=== PATIENT | female | born 1985 | race Caucasian/White ===

== ENCOUNTER 2016-03-08 13:48 | Emergency (ER) | payer MEDICAID ==
[~2016-03-08] VITALS: Ht 157.5 cm; Wt 54.4 kg
[~2016-03-08 13:48] MED LIST: BIRTH CONTROL PILL PO; HYDR-3583 PO; HYDR1TAB PO; HYOS0.1216 PO; MAGN296S50 PO; PRM25T PO; SULF1TAB35 PO; TRAM-42 PO; TRM50T PO
--- OUTSIDE RECORDS SUMMARY | 2016-03-08 13:55 | XMS REPORT | Continuity of Care Document ---
Author Author [facility] Organization [facility] Address Unknown Phone Unavailable Care Team Providers Care Direct Support Specialist Name Role Phone NO, LOCAL PHYSICIAN PCP Unavailable Insurance Providers Payer Name Policy Number Subscriber Name Relationship Medicaid [place] [id number] DamonClara S 16 Self / Same As Patient Advance Directives Directive Response Recorded Date/Time Advance Directives No 12/16/15 6:15pm Health Care Power of Therapist Asst No 12/16/15 6:15pm Organ Donor No 12/16/15 6:15pm Chief Complaint and Reason for Visit Chief Complaint General Problems/Pain Reason for Visit Arthralgia Problems Active Problems Medical Problem Onset Date Status Arthralgia Unknown Acute Constipation Unknown Acute Urinary tract infection Unknown Acute Medications Current Home Medications Medication Dose Units Route Directions Days/Qty Instructions Start Date Sulfamethoxazole/Trimethoprim 1 Each 1 Each Oral Twice A Day 10 Magnesium Citrate 296 Ml 296 Ml Oral Once 1 12/16/15 Tramadol Hcl 50 Mg 50 Mg Oral Every 6 Hours as needed for Pain 10 10/10 Past Home Medications Medication Directions Ordered Status [ Control Pill] , Oral Daily 05/25/10 Discontinued Acetaminophen/Hydrocodone Bitart 1 Tab Tab, 1 - 2 Ea Oral Q 4 - 6 Hr Prn 11/02 Discontinued Hyoscyamine Sulfate 0.125 Mg Tab, 1 Each Oral Q4hr Prn 06/13/11 Discontinued Promethazine Hcl 25 Mg Tablet, 1 Tab Oral Every 6 Hours 06/13/11 Discontinued Social History Social History Problem Response Recorded Date/Time Alcohol Use Occasionally Uses 08/17/2012 1:33am Recreational Drug Use No 08/17/2012 1:33am Recent Foreign Travel No 02/02/2016 6:44pm Recent Infectious Disease Exposure No 02/02/2016 6:44pm Sexually Transmitted Disease No 02/02/2016 6:47pm Recent Hopitalizations Y SURGERIES/CHILDBIRTH 02/02/2016 6:47pm Sexually Transmitted Disease No 02/02/2016 6:47pm Hx Sexually Transmitted Disorders No 07/10/2010 9:08am Hospital Discharge Instructions No hospital discharge instructions. Plan of Care Discharge Date 02/02/16 7:20pm Disposition 01 HOME, SELF-CARE Condition at Discharge Stable Instructions/Education Provided NO INSTRUCTIONS GIVEN Prescriptions See Medication Section Referrals NO,LOCAL PHYSICIAN - Primary Care Physician Additional Instructions/Education 1. Medication as directed 2. Follow-up with your doctor as soon as possible All discharge instructions reviewed with patient and/or family. Voiced understanding. Functional Status No functional status results. Allergies, Adverse Reactions, Alerts Allergen Type Severity Reaction Status Last Updated Penicillins ([id number]) Allergy Intermediate RASH Active 07/10/10 iodine ([id number]) Allergy Active 05/25/10 adhesive tape Allergy Active 05/25/10 Immunizations No immunization records. Vital Signs Acute Vital Signs Vital Response Date/Time Temperature (Fahrenheit) 98 degrees F (97.6 - 99.5) 02/02/2016 6:44pm Temperature (Calculated Celsius) 36.6696 degrees C (36.4 - 37.5) 02/02/2016 6 :44pm Temperature Source Tympanic 02/02/2016 6:44pm Pulse Rate (adult) 80 bpm (60 - 90) 02/02/2016 6:44pm Respiratory Rate 18 bpm (12 - 24) 02/02/2016 6:44pm O2 Sat by Pulse Oximetry 98 % (88 - 100) 02/02/2016 6:44pm Blood Pressure 129/89 mm Hg 02/02/2016 6:44pm Blood Pressure Mean 102 mm Hg 02/02/2016 6:44pm Pain Numeric Pain Scale 9 02/02/2016 7:04pm Height (Feet) 5 feet 02/02/2016 6:44pm Height (Inches) 3 inches 02/02/2016 6:44pm Height (Calculated Centimeters) 160.247860 cm 02/02/2016 6:44pm Weight (Pounds) 135 pounds 02/02/2016 6:44pm Weight (Calculated Kilograms) 61.834520 kilograms 02/02/2016 6:44pm Capillary Refill Capillary Refill Less Than 3 Seconds 02/02/2016 6:44pm Height 5 ft 3 in Weight 135 lb Body Mass Index 23.9 kg/m^2 Results No known relevant diagnostic tests, laboratory data and/or discharge summary. Procedures No known history of procedures. Encounters Encounter Location Arrival/Admit Date Discharge/Depart Date Attending Provider Departed Emergency Room [facility] 02/02/16 6:38pm 02/01 7:20pm JESSE PATEL APRN Recent Diagnosis
[2016-03-08] MEDS ORDERED: TRAM-42 PO (13:58)
[2016-03-08] MEDS ORDERED: METH4TAB PO (13:58)
--- NOTE | 2016-03-08 13:59 | ED General ---
General Stated Complaint: HIP PAIN, R HIP WORSE Source of Information: Patient Exam Limitations: No Limitations History of Present Illness Time Seen by Provider: 13:56 Initial Comments To ER with pain in all of her joints, worse in the right hip. She has a history of rheumatoid arthritis formerly followed by a physician in [facility] where she is originally from. In January she was here for the same presentation as she had just moved to [place]. She missed her follow-up appointment with her primary care in [place] and called to reschedule her appointment but they dropped her as a patient she states. Today, she is out of all of her pain medication. She denies fevers chills or injury. Pain is characteristic of her rheumatoid arthritis Timing/Duration: 1-2 Days Severity: Moderate Allergies and Home Medications Allergies Coded Allergies: Penicillins (Verified Allergy, Intermediate, RASH, 07/10/10) adhesive tape (Unverified Allergy, Unknown, 02/03/16) iodine (Unverified Allergy, Unknown, 02/03/16) Home Medications Magnesium Citrate 296 Ml Solution #1 296 ML PO ONCE Prescribed by: JESSE PATEL on 12/16/151910 Sulfamethoxazole/Trimethoprim 1 Each Tablet #10 1 EACH PO BID Prescribed by: JESSE PATEL on 12/16/151910 Tramadol HCl 50 Mg Tablet #10 50 MG PO Q6H PRN PRN PAIN Prescribed by: JESSE PATEL on 02/02/161851 Constitutional: see HPI EENTM: see HPI Respiratory: no symptoms reported Cardiovascular: no symptoms reported Genitourinary: no symptoms reported Musculoskeletal: see HPI joint pain Skin: no symptoms reported Psychiatric/Neurological: No Symptoms Reported Hematologic/Lymphatic: No Symptoms Reported Immunological/Allergic: no symptoms reported Past Piafanb-Wmjffg-Kbjcdi Hx Patient Social History Recent Hopitalizations: Yes (SURGERIES/CHILDBIRTH) Surgeries HX Surgeries: Yes (MARY FUNDOPLICATION) Surgeries: Appendectomy, Section, Hysterectomy Respiratory Hx Respiratory Disorders: No Cardiovascular Hx Cardiac Disorders: No Neurological Hx Neurological Disorders: Yes Reproductive System Hx Reproductive Disorders: No Sexually Transmitted Disease: No Genitourinary Hx Genitourinary Disorders: No Gastrointestinal Hx Gastrointestinal Disorders: Yes Gastrointestinal Disorders: Gastroesophageal Reflux Musculoskeletal Hx Musculoskeletal Disorders: No Endocrine Hx Endocrine Disorders: No HEENT HX ENT Disorders: No Cancer Hx Cancer: No Psychosocial Hx Psychiatric Problems: No Blood Transfusions Hx Blood Disorders: No Adverse Reaction to a Blood Tr: No Family Medical History Significant Family History: No Pertinent Family Hx Physical Exam Vital Signs Capillary Refill : General Appearance: No Apparent Distress WD/WN Eyes: Bilateral Eye EOMI, Bilateral Eye Normal Inspection, Bilateral Eye PERRL HEENT: PERRL/EOMI TMs Normal Neck: Full Range of Motion Normal Inspection Respiratory: No Accessory Muscle Use No Respiratory Distress Extremity: Normal Capillary Refill Normal Inspection Neurologic/Psychiatric: Alert Oriented x3 No Motor/Sensory Deficits Skin: Normal Color Departure Impression Impression: Primary Impression: Arthralgia Disposition: HOME, SELF-CARE Condition: Stable Departure-Patient Inst. Decision time for Depature: 13:57 Referrals: [facility] (PCP/Family) Primary Care Physician Patient Instructions: CHRONIC PAIN Add. Discharge Instructions: 1. Medication as directed 2. Follow-up with her regular physician Scripts Methylprednisolone (Medrol)4 Mg Tab.ds.pk4 Mg PO UD #1 PKG Prov:JESSE PATEL BOARD CERTIFIED FAMILY PHYSICIAN 03/08/16 Tramadol HCl (Ultram)50 Mg [id number] Mg PO Q6H PRN PAIN #10 TAB Do not fill unless Medrol Dosepak is also filled Prov:JESSE PATEL BOARD CERTIFIED FAMILY PHYSICIAN 03/08/16 JESSE PATEL BOARD CERTIFIED FAMILY PHYSICIAN Mar 08, 2016 13:59
[2016-03-08 14:05] VITALS: BP 120/90
== END 2016-03-08 14:02 | disposition home or self-care (01) ==
LOC: EDUNIT# 13:48 → ER 13:52
DX: M06.9 Rheumatoid arthritis, unspecified (principal)
CPT/HCPCS: 99283

== ENCOUNTER 2016-05-02 13:31 | Day surgery (SDC) | payer MEDICAID ==
[~2016-05-02] VITALS: Ht 157.5 cm; Wt 54.4 kg
[~2016-05-02 13:31] MED LIST changes: +METH4TAB PO
--- OUTSIDE RECORDS SUMMARY | 2016-05-02 13:34 | XMS REPORT | Continuity of Care Document ---
Author Author [facility] Organization [facility] Address Unknown Phone Unavailable Care Team Providers Care Cyber Transport Systems Specialist Name Role Phone NO, LOCAL PHYSICIAN PCP Unavailable Insurance Providers Payer Name Policy Number Subscriber Name Relationship Medicaid [place] [id number] DamonClara S 16 Self / Same As Patient Advance Directives Directive Response Recorded Date/Time Advance Directives No 12/16/15 6:15pm Health Care Power of Dam Tender Assistant No 12/16/15 6:15pm Organ Donor No 12/16/15 [...] Type Severity Reaction Status Last Updated Penicillins ([id number]) Allergy Intermediate RASH Active 07/10/10 iodine ([id number]) Allergy Active 05/25/10 adhesive tape Allergy Active [...] 3 inches 02/02/2016 6:44pm Height (Calculated Centimeters) 160.759329 cm 02/02/2016 6:44pm Weight (Pounds) 135 pounds 02/02/2016 6:44pm Weight (Calculated Kilograms) 61.644637 kilograms 02/02/2016 6:44pm Capillary Refill Capillary Refill Less Than 3 Seconds 02/02/2016 6:44pm Height 5 ft 3 in Weight 135 lb Body Mass Index 23.9 kg/m^2 Results No known relevant diagnostic tests, laboratory data and/or discharge summary. Procedures No known history of procedures. Encounters Encounter Location Arrival/Admit Date Discharge/Depart Date Attending Provider Departed Emergency Room [facility] 02/02/16 6:38pm 02/01 7:20pm JESSE PATEL APRN Recent Diagnosis
--- OUTSIDE RECORDS SUMMARY | 2016-05-02 13:35 | XMS REPORT | Continuity of Care Document ---
Author Author [facility] Organization [facility] Address Unknown Phone Unavailable Care Team Providers Care Slab Miller Operator Name Role Phone NO, LOCAL PHYSICIAN PCP Unavailable Insurance Providers Payer Name Policy Number Subscriber Name Relationship Medicaid [place] [id number] DamonClara S 16 Self / Same As Patient Advance Directives Directive Response Recorded Date/Time Advance Directives No 12/16/15 6:15pm Health Care Power of It Investment/Portfolio Manager No 12/16/15 6:15pm Organ Donor No 12/16/15 [...] Type Severity Reaction Status Last Updated Penicillins ([id number]) Allergy Intermediate RASH Active 07/10/10 iodine ([id number]) Allergy Active 05/25/10 adhesive tape Allergy Active [...] 3 inches 02/02/2016 6:44pm Height (Calculated Centimeters) 160.010744 cm 02/02/2016 6:44pm Weight (Pounds) 135 pounds 02/02/2016 6:44pm Weight (Calculated Kilograms) 61.480669 kilograms 02/02/2016 6:44pm Capillary Refill Capillary Refill Less Than 3 Seconds 02/02/2016 6:44pm Height 5 ft 3 in Weight 135 lb Body Mass Index 23.9 kg/m^2 Results No known relevant diagnostic tests, laboratory data and/or discharge summary. Procedures No known history of procedures. Encounters Encounter Location Arrival/Admit Date Discharge/Depart Date Attending Provider Departed Emergency Room [facility] 02/02/16 6:38pm 02/01 7:20pm JESSE PATEL APRN Recent Diagnosis
[2016-05-02 13:40] VITALS: BP 108/72
[2016-05-02] MEDS ORDERED: NS IV 1000 ML 1,000 ML IV PRN (14:00)
[2016-05-02] MEDS ORDERED: NS IV 500 ML 500 ML ONE ×2 (14:00→14:04)
[2016-05-02] MEDS ORDERED: FLUMAZENIL (ROMAZICON) 0.1 MG/ML 5 ML VIAL INJ PRN (14:00)
[2016-05-02] MEDS ORDERED: HURRICAINE EXT TUBE (BENZOCAINE) XX PRN (14:00)
[2016-05-02] MEDS ORDERED: GLUCAGON EMERGENCY 1 MG/KIT IM ONE (14:00)
[2016-05-02] MEDS ORDERED: NALOXONE 0.4 MG/ML 1 ML (NARCAN) VIAL IVP PRN (14:00)
[2016-05-02] MEDS ORDERED: LIDOCAINE JELLY 2% (XYLOCAINE) 5 ML TUBE MM PRN (14:00)
[2016-05-02] MEDS ORDERED: GABA-488 PO (14:27)
[2016-05-02] MEDS ORDERED: TOPI50TA37 PO (14:30)
[2016-05-02] MEDS ORDERED: TRAZ100T92 PO (14:30)
[2016-05-02] MEDS ORDERED: NORG1TAB14 PO (14:30)
[2016-05-02] MEDS ORDERED: ESOM20CA PO (14:30)
[2016-05-02] MEDS ORDERED: BUSP5POW MC (14:30)
[2016-05-02] MEDS ORDERED: SERT50TA2 PO (14:30)
--- NOTE | 2016-05-02 14:35 | Conscious Sedation/ASA ---
Conscious Sedation Pre-Proced Time Reviewed: 14:30 ASA Class: 2 Airway Mallampati Classification: (bridgeport appropriate class) I. II. III, IV Lungs Heart ASA score ASA 1: a normal healthy patient ASA 2: a patient with a mild systemic disease (mid diabetes, controlled hypertension, obesity ASA 3: a patient with a severe systemic disease that limits activity (angina , COPD, prior Myocardial infarction) ASA 4: a patient with an incapacitating disease that is a constant threat to life (CHF, renal failure) ASA 5: a moribund patient not expected to survive 24 hrs. (ruptured aneurysm) ASA 6: a declared brain patient whose organs are being harvested. For emergent operations, add the letter E after the classification Grade 2 Sedation Plan: Analgesia, Amnesia, Plan communicated to team members, Discussed options with patient/fam, Discussed risks with patient/fam Note The patient is an appropriate candidate to undergo the planned procedure, sedation, and anesthesia. The patient immediately re-assessed prior to indication. VICTORINA MILLER MD May 02, 2016 2:35 pm
--- NOTE | 2016-05-02 14:36 | Progress Note-Pre Operative ---
Pre-Operative Progress Note H&P Reviewed The H&P was reviewed, patient examined and no changes noted. Date H&P Reviewed: May 02, 2016 Time H&P Reviewed: 14:30 Pre-Operative Diagnosis: dysphagia, esophageal FB VICOTRINA MILLER MD May 02, 2016 2:36 pm
[2016-05-02] MEDS ORDERED: ACETAMINOPHEN 325 MG TABLET/CAPLET (TYLENOL) PO PRN (14:45)
[2016-05-02] MEDS ORDERED: HYDROcodone/APAP 5 MG/325 MG (LORTAB) TAB PO PRN (14:45)
[2016-05-02] MEDS ORDERED: morphine INJ 10 MG/ML 1ML (SYR OR VIAL) IV PRN (14:45)
[2016-05-02] MEDS ORDERED: ONDANSETRON 4 MG/2 ML (SDV) Z0FRAN IV PRN (14:45)
[2016-05-02] MEDS: fentaNYL INJECTION 100 MCG/2 ML AMP IVP PRN ×2 (15:00→15:11)
[2016-05-02] MEDS ORDERED: fentaNYL INJECTION 100 MCG/2 ML AMP ONE (15:00)
[2016-05-02] MEDS ORDERED: LIDOCAINE JELLY 2% (XYLOCAINE) 5 ML TUBE ONE (15:00)
[2016-05-02] MEDS ORDERED: MIDAZOLAM 2 MG/2 ML (VERSED) VIAL ONE ×5 (15:00→15:01)
[2016-05-02] MEDS ORDERED: HURRICAINE EXT TUBE (BENZOCAINE) ONE (15:01)
[2016-05-02] MEDS: MIDAZOLAM 2 MG/2 ML (VERSED) VIAL IVP PRN ×5 (15:10→15:25)
--- NOTE | 2016-05-02 15:45 | Progress Note-Post Operative ---
Post-Operative Progess Note Pre-Operative Diagnosis dysphagia, esophageal FB Post-Operative Diagnosis distal esophageal stricture, reflux esophagitis(class B), mild gastritis. Post-Op Procedure Note Date of Procedure: May 02, 2016 Name of Procedure: EGD with bx and dilatation. Anesthesia Type CS Estimated blood loss (mL): minimal Specimen(s) collected GE jxn, antrum VICTORINA MILLER MD May 02, 2016 3:45 pm
[2016-05-02] MEDS ORDERED: HYOS0.1216 PO (15:47)
--- NOTE | 2016-05-02 15:48 | Discharge Inst-Surgical ---
D/C Lap Instructions-KIDO New, Converted, or Re-Newed RX: RX on Chart Follow Up PRN Activity as tolerated High Fiber Diet 25g or more per day Avoid Alcohol, Caffeine, Spicy Buckner and Acid foods. Drink 64 fluid oz or more of fluids per day. Symptoms to Report: Fever over 101 degree F, Nausea/Vomiting If any problems/questions: Contact your physician or go to Emergency Room VICTORINA MILLER MD May 02, 2016 3:48 pm
[2016-05-02 16:00] VITALS: BP 100/65
[2016-05-02 16:45] VITALS: BP 110/70
[2016-05-02 16:55] VITALS: BP 110/70
--- NOTE | 2016-05-03 08:21 | HISTORY AND PHYSICAL ---
DATE OF ADMISSION: 05/02/2016 Ms. Clara Jose is a 31-year-old female who presents with dysphagia. She reports that she ate a small piece of pork loin at approximately 9 p.m. last night and has had issues with dysphagia which persisted throughout the night, as well as this morning. Since that time she has been unable to swallow her own saliva. She reports that this has happened before, however, it tends to go away on its own over time. She has a history of gastroesophageal reflux disease, as well as a hiatal hernia and status post a hiatal hernia repair, as well as a Cosmo fundoplication 2010. Since that time she has had issues with dysphagia on an intermittent basis and states that she has had multiple EGDs as well as dilatation procedures, usually once a year. She does not report any hematemesis or coffee-ground emesis. PAST MEDICAL HISTORY: 1. Gastroesophageal reflux disease. 2. Seizure disorder. PAST SURGERIES: 1. Laparoscopic hiatal hernia repair. 2. Cosmo fundoplication 2010. 3. Total hysterectomy. 4. section x2. ALLERGIES: PENICILLIN MEDICATIONS: 1. Gabapentin. 2. Zoloft. 3. Nexium. 4. Sprintec. 5. Topamax, 6. Trazodone. SOCIAL HISTORY: Previous smoke, quit one year ago 12 - pack-years, negative alcohol. FAMILY HISTORY: Noncontributory. VITAL SIGNS: Stable. REVIEW OF SYSTEMS: This is a well-nourished female currently in no acute distress. She is not experiencing any shortness of breath or difficulty breathing. No chest pain, palpitations, diaphoresis. Intermittent episodes of dysphagia with epigastric pressure sensation as well as regurgitation. No hematemesis, no coffee-ground emesis. No red blood per rectum. No dark tarry stools. No fever, chills, no recent inadvertent weight loss. PHYSICAL EXAMINATION: CHEST: Clear. HEART: Regular. EXTREMITIES: No lower extremity edema. Negative Homans sign. HEENT: No scleral icterus. No cervical lymphadenopathy. ABDOMEN: Soft, nondistended. There is mild discomfort in the epigastric region upon deep palpation. No peritoneal signs. ASSESSMENT AND PLAN: 31-year-old female with dysphagia most likely secondary to a distal esophageal stricture status post hiatal hernia repair, as well as Cosmo fundoplication. She has obvious signs of dysphagia and is unable to swallow her own saliva. We will proceed with an EGD, removal of foreign body as well as esophageal dilatation. Job ID: [id number] Dictated Date: 05/02/2016 15:06:33 Press And Blow Machine Tender Date: 05/03/2016 08:14:25/alex
--- NOTE | 2016-05-03 10:22 | OPERATIVE REPORT ---
PROCEDURE PHYSICIAN: VICTORINA MILLER DATE OF PROCEDURE: 05/02/2016 PREOPERATIVE DIAGNOSES: 1. Recurrent dysphagia. 2. Esophageal stricture. POSTOPERATIVE DIAGNOSES: 1. Distal esophageal stricture. There was no foreign body identified. 2. Intact wrap with no recurrent hiatal hernia. 3. Mild to moderate gastritis. 4. No distal obstruction. PROCEDURE: EGD with biopsy and dilatation. SURGEON: Dr. Miller. ANESTHESIA: Conscious sedation. ESTIMATED BLOOD LOSS: Minimal. FINDINGS: 1. There was a distal esophageal stricture with no foreign body. 2. There was a reflux esophagitis, class B. 3. There was no recurrent hiatal hernia with an intact wrap. 4. Mild to moderate gastritis. 5. No ulcers. 6. The pylorus and duodenum appeared normal. DISPOSITION: The patient tolerated procedure well. Ms. Clara Jose is a 31-year-old female with a long-standing history of gastroesophageal reflux disease. She was found to have a significant sized hiatal hernia and underwent a hiatal hernia repair, as well as a Cosmo fundoplication 2010. Since that time she has had some recurrent issues with dysphagia. She reports that this may occur on an intermittent basis with epigastric tightness and pressure sensation, however, usually the food bolus would pass within 10 to 15 minutes. Occasionally this does not reduce on its own. She reports that she has had several EGDs as well as dilatation procedures done in the past as well. She is currently on Nexium. Again, she has dysphagia and states that she did have a pork loin yesterday night and since that time she has had dysphagia and inability to swallow her saliva. PROCEDURE: The patient was brought to the endoscopy suite, laid in the left lateral decubitus position. After adequate IV pain and sedative medications and conscious sedation anesthesia, the mouthpiece was applied. The endoscope was placed in the mouth, visualizing the pharynx and hypopharyngeal region. Vocal cords, epiglottis and vallecula identified and appeared to be normal. The endoscope was then intubated into the esophageal opening and the esophagus insufflated. There was no saliva or liquid identified in the esophagus. The endoscope was then advanced through the first, second, and 3rd portions esophagus at the level of the GE junction, a reflux esophagitis, class B identified. A distal esophageal stricture was also identified. A biopsy was taken with forceps with visualization of good hemostasis. The endoscope was then advanced through the GE junction with mild resistance and endoscope retroflexed. There was no recurrent hiatal hernia, as well as an intact previous wrap. There was a mild to moderate gastritis; however, no ulcers, polyps or any neoplasms identified. A biopsy was taken of the antrum with forceps with visualization of good hemostasis. The endoscope was then advanced through the pylorus and into the first and second portions of duodenum which appeared normal with no distal obstructions. We then proceeded with dilatation of the distal esophageal stricture. A CRE fixed guidewire balloon was placed under direct visualization into the stomach and brought back to the area of the stricture. The balloon was first dilated to 3 atmospheres of pressure or 18 mm with mild resistance. We then proceeded with 4.5 atmospheres of pressure or 19 mm with moderate resistance and she did show discomfort consistent with a successful dilatation. This was left in place for approximately 60 seconds and desufflated and removed. No mucosal tears were identified. The endoscope was then advanced back into stomach and the residual air suctioned out. The patient tolerated procedure well. We will have her continue with medical management with the necessary lifestyle and diet accommodation including smaller, more frequent meals, avoidance of eating at night, as well as head elevation while laying supine. She also needs to avoid caffeinated beverages, spicy, greasy and acidic foods. We will also proceed with a trial hyoscyamine for potential esophageal spasms. Job ID: [id number] Dictated Date: 05/02/2016 15:40:50 Mucker Cofferdam Date: 05/03/2016 10:11:27 / raysa
[2016-05-03] MEDS ORDERED: BUSP5TAB59 PO (13:09)
[2016-05-03] MEDS ORDERED: HYOS0.1216 PO (13:09)
[2016-05-03] MEDS ORDERED: TRAM50TA2 PO (13:13)
== END 2016-05-02 16:59 | disposition home or self-care (01) ==
LOC: ENDO 13:31
PROVIDERS: ATTEND Surgery Pediatric Surgery
DX: K22.2 Esophageal obstruction (principal); K29.70 Gastritis, unspecified, without bleeding; K21.9 Gastro-esophageal reflux disease without esophagitis; G40.909 Epilepsy, unspecified, not intractable, without status epilepticus; Z87.891 Personal history of nicotine dependence; Z79.899 Other long term (current) drug therapy
CPT/HCPCS: 88305

== ENCOUNTER 2016-05-03 11:21 | Observation (INO) | payer MEDICAID ==
[~2016-05-03] VITALS: Ht 157.5 cm; Wt 54.4 kg
[~2016-05-03 11:21] MED LIST changes: +BUSP5POW MC; +ESOM20CA PO; +GABA-488 PO; +NORG1TAB14 PO; +SERT50TA2 PO; +TOPI50TA37 PO; +TRAZ100T92 PO
--- OUTSIDE RECORDS SUMMARY | 2016-05-03 12:03 | XMS REPORT | Continuity of Care Document ---
Author Author [facility] Organization [facility] Address Unknown Phone Unavailable Care Team Providers Care Box Turner Name Role Phone NO, LOCAL PHYSICIAN PCP Unavailable Insurance Providers Payer Name Policy Number Subscriber Name Relationship Medicaid [place] [id number] DamonClara S 18 Self / Same As Patient Advance Directives Directive Response Recorded Date/Time Advance Directives No 12/16/15 6:15pm Health Care Power of Toolroom Attendant No 12/16/15 6:15pm Organ Donor No 12/16/15 [...] Type Severity Reaction Status Last Updated Penicillins ([id number]) Allergy Intermediate RASH Active 07/10/10 iodine ([id number]) Allergy Active 05/25/10 adhesive tape Allergy Active [...] 3 inches 02/02/2016 6:44pm Height (Calculated Centimeters) 160.856077 cm 02/02/2016 6:44pm Weight (Pounds) 135 pounds 02/02/2016 6:44pm Weight (Calculated Kilograms) 61.137142 kilograms 02/02/2016 6:44pm Capillary Refill Capillary Refill Less Than 3 Seconds 02/02/2016 6:44pm Height 5 ft 3 in Weight 135 lb Body Mass Index 23.9 kg/m^2 Results No known relevant diagnostic tests, laboratory data and/or discharge summary. Procedures No known history of procedures. Encounters Encounter Location Arrival/Admit Date Discharge/Depart Date Attending Provider Departed Emergency Room [facility] 02/02/16 6:38pm 02/01 7:20pm JESSE PATEL APRN Recent Diagnosis
[2016-05-03 12:35] LABS: BASOPHILS % (AUTO) 1 % (0-10); EOSINOPHILS # (AUTO) 0.1 10^3/uL (0.0-0.3); EOSINOPHILS % (AUTO) 4 % (0-10); LYMPHOCYTES # (AUTO) 1.7 X 10^3 (1.0-4.0); LYMPHOCYTES % (AUTO) 47 % (12-44); MEAN CORPUSCULAR HEMOGLOBIN 32 PG (25-34); MEAN CORPUSCULAR HGB CONC 34 G/DL (32-36); MEAN CORPUSCULAR VOLUME 94 FL (80-99); MEAN PLATELET VOLUME 10.1 FL (7.4-10.4); MONOCYTES # (AUTO) 0.3 X 10^3 (0.0-1.0); MONOCYTES % (AUTO) 7 % (0-12); NEUTROPHILS # (AUTO) 1.5 X 10^3 (1.8-7.8); NEUTROPHILS % (AUTO) 42 % (42-75); PLATELET COUNT 210 10^3/uL (130-400); RED BLOOD COUNT 4.07 10^6/uL (4.35-5.85); RED CELL DISTRIBUTION WIDTH 13.1 % (10.0-14.5); WHITE BLOOD COUNT 3.6 10^3/uL (4.3-11.0)
[2016-05-03 12:54] LABS: ANION GAP 8 MMOL/L (5-14); BLOOD UREA NITROGEN 15 MG/DL (7-18); BUN/CREATININE RATIO 19; CALCIUM 9.1 MG/DL (8.5-10.1); CARBON DIOXIDE 23 MMOL/L (21-32); CHLORIDE 110 MMOL/L (98-107); CREATININE SERUM 0.78 MG/DL (0.60-1.30); GFR ESTIMATED > 60; GLUCOSE 85 MG/DL (70-105); SODIUM 141 MMOL/L (135-145)
[2016-05-03] MEDS ORDERED: NS IV 1000 ML 1,000 ML IV SCH (13:00)
[2016-05-03] MEDS ORDERED: LORazepam INJ 2 MG/ML (ATIVAN) VIAL IV PRN (13:00)
[2016-05-03] MEDS ORDERED: methylPREDNISolone 125 MG (Solu-MEDROL) VIAL IV NR (13:00)
[2016-05-03] MEDS ORDERED: ONDANSETRON 4 MG/2 ML (SDV) Z0FRAN IV PRN (13:00)
[2016-05-03] MEDS ORDERED: METOCLOPRAMIDE INJ 10 MG/2 ML (REGLAN) IV PRN (13:00)
[2016-05-03] MEDS ORDERED: CATHETER FLUSH 10 ML SYR IV PRN (13:00)
[2016-05-03] MEDS ORDERED: BUSP5TAB59 PO (13:09)
[2016-05-03] MEDS ORDERED: HYOS0.1216 PO (13:09)
[2016-05-03] MEDS ORDERED: TRAM50TA2 PO (13:13)
[2016-05-03] MEDS: PANTOPRAZOLE 40 MG/10 ML (PROTONIX) VIAL IV SCH ×2 (13:24→21:11)
[2016-05-03 14:53] VITALS: BP 106/70
[2016-05-03] MEDS: NS IV 1000 ML 1,000 ML IV SCH ×3 (14:57→23:13)
[2016-05-03 15:30] VITALS: BP 91/53
[2016-05-03] MEDS ORDERED: DIATRIZOATE MEGLUM/SODIUM 37% 120 ML (GASTROGRAFIN) PO ONE (15:30)
--- NOTE | 2016-05-03 15:45 | Diagnostic Imaging Report ---
EXAMINATION: Barium Swallow - esophagram. INDICATION: Difficulty swallowing. FINDINGS: Reportedly, the patient had an endoscopic procedure performed yesterday. The preliminary film reveals that the heart size is within normal limits. The lungs are clear. There is no evidence for pneumonia or for a pleural effusion. There is no sign of pneumothorax or pneumomediastinum either. The osseous structures are intact. The patient was given a small amount of Gastrografin to swallow. However, despite encouragement, she was unable to initiate the swallowing mechanism. She subsequently expelled the Gastrografin. She was then asked to swallow again. Again she tried to swallow but could not. The exam was then terminated. IMPRESSION: 1. The patient was unable to initiate the swallowing mechanism. Consequently, the esophagus could not be visualized. An ENT consult should be considered. 2. These results were discussed with Dr. Kitchen. Dictated by: Dictated on workstation # [id number]
--- NOTE | 2016-05-03 16:12 | Speech Therapy Progress Note ---
Therapy Progress Note Speech pathology received consultation for "Modified Barium Swallow Evaluation. " Upon review of the patient's chart and medical history, it appears a "Barium Swallow Evaluation" is more appropriate and was completed at 12:10 on 05/03/2016 in [place] of the modified barium swallow evaluation by speech pathology. The speech pathologist contacted the patient's RN following floor transfer and we re -directed to the RN who was previously caring for the patient in ICU. The speech pathologist made two attempts to contact the RN in ICU and left a message for a returned call. If a modified barium swallow remains appropriate, the evaluation will need to be scheduled with speech pathology with the earliest available appointment on 05/07/16. Speech pathology will attempt to continue follow up regarding the necessary assessments needed/ ordered. KALIN VALE May 03, 2016 16:12
[2016-05-03] MEDS: METOCLOPRAMIDE INJ 10 MG/2 ML (REGLAN) IV SCH ×2 (17:02→23:53)
--- NOTE | 2016-05-03 19:02 | Progress Note-Standard ---
Standard Progress Note Progress Notes/Assess & Plan Progress/Assessment & Plan ENT-Keenan PAtient seen and evaluated Fiberoptic laryngosocpy-showed no abnormality of larynx or supraglottic strucures-good airway-pyriform sinuses open well-no pooling os secretions by history she suffers from esophageal spasms with distant history of h/h surgery EGD -today-showed no esophageal obstruction would rec-modified swallow in am Discusssed her sign choking episode and sometimes it takes some time to be able to swallow again even without an obstruction present HOpefully after modified swallow in am she will begin to swallow her slaivan and then progrss to a diet as she is hungry full note dictated. PIERRE CRAFT MD May 03, 2016 7:02 pm
[2016-05-03 20:00] VITALS: BP 97/49
[2016-05-03] MEDS: fentaNYL INJECTION 100 MCG/2 ML AMP IV PRN (23:13)
[2016-05-04] VITALS: BP 78/43
[2016-05-04 01:00] VITALS: BP 94/52
[2016-05-04 04:00] VITALS: BP 82/57
[2016-05-04] MEDS: METOCLOPRAMIDE INJ 10 MG/2 ML (REGLAN) IV SCH ×2 (05:14→11:53)
--- NOTE | 2016-05-04 06:42 | Progress Note-Standard ---
Standard Progress Note Progress Notes/Assess & Plan Progress/Assessment & Plan ENT-Kristin PAtient seen and evaluated Fiberoptic laryngosocpy-showed no abnormality of larynx or supraglottic strucures-good airway-pyriform sinuses open well-no pooling os secretions by history she suffers from esophageal spasms with distant history of h/h surgery EGD -today-showed no esophageal obstruction would rec-modified swallow in am Discusssed her sign choking episode and sometimes it takes some time to be able to swallow again even without an obstruction present HOpefully after modified swallow in am she will begin to swallow her slaivan and then progrss to a diet as she is hungry full note dictated. ENT-Kristin patient able to sleep overnight and handle her saliva while asleep still no oral intake otherwise hopefully will begin to swallow today Attempt giorgio modified swallow today as well PIERRE CRAFT MD May 04, 2016 6:42 am
[2016-05-04] MEDS: NS IV 1000 ML 1,000 ML IV SCH (06:52)
--- NOTE | 2016-05-04 07:59 | Speech Therapy Progress Note ---
Therapy Progress Note Speech pathology received confirmation for scheduling of modified barium swallow. Via [facility] Scheduling was contacted, however, not reached. A message was left requesting a return phone call, as well as, the first available appointment for a modified barium swallow. Thank you. KALIN VALE May 04, 2016 07:59
[2016-05-04 08:00] VITALS: BP 101/58
--- NOTE | 2016-05-04 08:28 | CONSULTATION REPORT ---
DATE OF CONSULTATION: ENT CONSULTATION: REFERRING PHYSICIAN: Dr. Kitchen REASON FOR CONSULTATION: Dysphagia. HISTORY OF PRESENT ILLNESS: The patient is 31-year-old female had a choking episode at home about 24 hours ago. She choked on a piece boneless pork loin. She had a significant choking event and describes significant problems with her breathing as well as retching. Her history is significant for a hiatal hernia repair back in 2010. She reports she has had some difficulty swallowing since that time. Dr. Kitchen did an upper endoscopy today and dilated the esophagus. No foreign body was found and really no significant stricture was present. She still has significant difficulty swallowing and is sitting in the spitting her saliva and cup. She complains of pain in the upper esophageal or neck region. Her voice is normal. She is breathing without difficulties. ALLERGIES: PENICILLIN PHYSICAL EXAMINATION: NOSE: Normal nasal mucosa. No mass or lesions seen. She has a nose ring in on the left. The right side of the nose was anesthetized with topical 4% Xylocaine. Nasopharynx was examined. No mass or lesions seen in the nasopharynx. MOUTH: The soft palate closes the nasopharynx well upon swallowing. Oral cavity showed the tongue with normal mobility with a strong gag reflex. No tongue fasciculations. The hypopharynx and larynx were examined with flexible scope. On evaluation there was no foreign body or abnormal mass seen in the base of the tongue. Supraglottic structures were normal. Vocal cords move well and met in the midline. She had no pooling of secretions in the piriform sinuses. The piriform sinuses opened well. The immediate subglottic region was clear. NECK: No mass or adenopathy palpable within the neck. IMPRESSION: 1. Dysphagia. 2. Severe choking event. RECOMMENDATIONS: Findings were discussed with the patient. There are no significant abnormalities seen above the level of cord. They attempted to do a barium swallow today but had to abort it as she did not swallow. We will attempt to do a modified swallow tomorrow. Anatomically there was nothing above the cords, which should inhibit her swallowing. We will see how she does on the modified swallow on Saturday. Hopefully with time the swelling will (s/l return) if she gets more comfortable. Job ID: [id number] Dictated Date: 05/04/2016 06:49:37 Cloth Layer Date: 05/04/2016 08:13:34/alex
[2016-05-04] MEDS: PANTOPRAZOLE 40 MG/10 ML (PROTONIX) VIAL IV SCH (08:30)
[2016-05-04] MEDS: fentaNYL INJECTION 100 MCG/2 ML AMP IV PRN (08:37)
[2016-05-04 11:09] LABS: BILIRUBIN,URINE NEGATIVE (NEGATIVE); KETONES,URINE NEGATIVE (NEGATIVE); LEUKOCYTE ESTERASE ,URINE NEGATIVE (NEGATIVE); NITRITE,URINE NEGATIVE (NEGATIVE); PH,URINE 6 (5-9); PROTEIN,URINE NEGATIVE (NEGATIVE); UROBILINOGEN,URINE NORMAL (NORMAL)
[2016-05-04] MEDS ORDERED: SUCR1ORA5 PO (11:34)
--- NOTE | 2016-05-04 11:35 | Discharge Instructions ---
Discharge Instructions Discharge Medications New, Converted or Re-Newed RX: Transmitted to Pharmacy New Medications: Sucralfate (Carafate) 1 Gm/10 Ml Oral.susp 1 GM PO ACHS #8 OZ Continued Medications: Buspirone HCl (Buspirone HCl) 5 Mg Tablet 5 MG PO TID TAB Esomeprazole Magnesium (Nexium) 20 Mg Capsule.dr 20 MG PO DAILY CAP Gabapentin (Gabapentin) 300 Mg Capsule 300 MG PO TID CAP Hyoscyamine Sulfate (Hyoscyamine Sulfate) 0.125 Mg Tablet 0.125 MG PO TID PRN SPASMS TAB Sertraline HCl (Zoloft) 50 Mg Tablet 50 MG PO DAILY TAB Topiramate (Topamax) 50 Mg Tablet 50 MG PO BID TAB Tramadol HCl (Tramadol HCl) 50 Mg Tablet 50 MG PO Q6H PRN PAIN TAB Trazodone HCl (Trazodone HCl) 100 Mg Tablet 100 MG PO HS PRN INSOMNIA TAB Patient Instructions Goal/Follow Up Appt: [facility] is scheduled Activity & Diet Discharge Diet: Liquid Diet, Soft Diet Activity as Tolerated: Yes DERIK SLAUGHTER DO May 04, 2016 11:35
--- NOTE | 2016-05-04 11:38 | Consultation-Hospitalist ---
HPI History of Present Illness: HPI/Chief Complaint CC: Dysphagia HPI: This is a 31yoWF pt of [facility] that presented with dysphagia after eating piece of pork but EGD revealed no food remnants and pt was admitted due to inability to swallow. Dr. Foster saw pt and has no answer for source of dysphagia but likely emotional in nature. insights manager: Pt is able to swallow, but may have UTI. Dr. Foster analyzed vocal chords last night and had no complications. Patient Interview: Pt states that her swallowing is improved. Pt just sent urine sample for analysis. Pt sees Dr. Fenton at [facility]. Dr. Slaughter informs pt that as long as she is able to eat and drink she will be able to DC today. Pt uses [facility]. Pt denies smoking. Pt is currently unemployed and searching for a job. Pt states that her throat is still in pain. Scribed by Beto Diamond under the direct supervision of Dr. Slaughter. Source: patient Exam Limitations: no limitations Date Seen 05/04/16 Attending Physician aRheem Kitchen MD PCP [facility] [place] Referring Physician Date of Admission May 03, 2016 at 11:50 Home Medications & Allergies Home Medications Reviewed patient Home Medication Reconciliation Form Allergies Coded Allergies: Penicillins (Verified Allergy, Intermediate, RASH, 07/10/10) adhesive tape (Unverified Allergy, Unknown, 02/03/16) iodine (Unverified Allergy, Unknown, 02/03/16) Past Mwuupzm-Klqjlb-Wabjqt Hx Patient Social History Marrital Status: single Employed/Student: unemployed Alcohol Use: Occasionally Uses Recreational Drug Use: No Smoking Status: Current Everyday Smoker Type Used: Electronic/Vapor Physical Abuse Screen: No Sexual Abuse: No Recent Foreign Travel: No Contact w/other who traveled: No Recent Hopitalizations: No Recent Infectious Disease Expo: No Seasonal Allergies Seasonal Allergies: Yes Surgeries HX Surgeries: Yes (MARY FUNDOPLICATION) Surgeries: Appendectomy, Section, Hysterectomy Respiratory Hx Respiratory Disorders: No Cardiovascular Hx Cardiovascular Disorders: No Neurological Hx Neurological Disorders: Yes Neurological Disorders: Neuropathy Reproductive System Hx Reproductive Disorders: No Sexually Transmitted Disease: No Genitourinary Hx Genitourinary Disorders: No Gastrointestinal Hx Gastrointestinal Disorders: Yes Gastrointestinal Disorders: Gastroesophageal Reflux Musculoskeletal Hx Musculoskeletal Disorders: No Endocrine Hx Endocrine Disorders: No HEENT HX ENT Disorders: No Cancer Hx Cancer: No Psychosocial Hx Psychiatric Problems: Yes Behavioral Health Disorders: Anxiety, Depression Integumentary Skin/Integumentary Disorders: Eczema Blood Transfusions Hx Blood Disorders: No Adverse Reaction to a Blood Tr: No Family Medical History Significant Family History: No Pertinent Family Hx Review of Systems Constitutional: see HPI EENTM: mouth pain throat pain throat swelling Respiratory: no symptoms reported Cardiovascular: no symptoms reported Gastrointestinal: no symptoms reported Genitourinary: frequency Musculoskeletal: no symptoms reported Skin: no symptoms reported Psychiatric/Neurological: No Symptoms Reported All Other Systems Reviewed Negative Unless Noted: Yes Physical Exam Physical Exam Vital Signs Vital Sign - Last 12Hours 05/03/16 14:53 Temp 98.7 Pulse 62 Resp 16 B/P 106/70 Pulse Ox 100 O2 Delivery Room Air Capillary Refill : General Appearance: No Apparent Distress WD/WN Eyes: Bilateral Eye Normal Inspection, Bilateral Eye PERRL HEENT: PERRL/EOMI Normal ENT Inspection Pharynx Normal Neck: Full Range of Motion Normal Inspection Non Tender Supple Carotid Bruit Respiratory: Chest Non Tender Lungs Clear Normal Breath Sounds No Accessory Muscle Use No Respiratory Distress Cardiovascular: Regular Rate, Rhythm No Edema No Gallop No JVD No Murmur Normal Peripheral Pulses Gastrointestinal: Normal Bowel Sounds No Organomegaly No Pulsatile Mass Non Tender Soft Back: Normal Inspection No CVA Tenderness No Vertebral Tenderness Extremity: Normal Capillary Refill Normal Inspection Normal Range of Motion Non Tender No Calf Tenderness No Pedal Edema Neurologic/Psychiatric: Alert Oriented x3 No Motor/Sensory Deficits Normal Mood/Affect Skin: Normal Color Warm/Dry Lymphatic: No Adenopathy Results Results/Procedures Lab Laboratory Tests 05/03/16 12:27 Assessment/Plan Admission Diagnosis Assessment: Acute dysphagia without source now resolving Urinary frequency with normal UA Assessment and Plan Plan: UA Canceled speech eval since pt can swallow now Close follow-up at [facility] Clinical Quality Measures DVT/VTE Risk/Contraindication: Risk Factor Score Per Nursin RFS Level Per Nursing on Admit: 1=Low/No VTE PPX DERIK SLAUGHTER DO May 04, 2016 11:38
--- NOTE | 2016-05-04 12:03 | ST Dysphagia Evaluation ---
Speech Evaluation-General Medical Diagnosis Dysphagia Onset Date: May 03, 2016 Therapy Diagnosis Therapy Diagnosis: Mild Odynophagia Precautions Precautions: Aspiration Precautions/Isolations: Standard Precautions Referral Referring Physician: Dr. Kitchen Reason for Referral: Evaluation/Treatment Bedside Swallowing Evaluation Speech PLF/Current-Dysphagia Prior Level of Function The patient denied signs/symptoms of aspiration with regular consistencies and thin liquids. Subjective The patient was recently admitted to [facility] following an EGD for a questionable esophageal obstruction (no obstruction was found). The patient stated she was "coughing and choking" on all consistencies she was consuming, as well as, reported odynophagia. Per patient, she is able to swallow on this date with increased ease and decreased difficulty. The patient agreed to participate in the dysphagia evaluation on this date. Cognitive Status Patient Orientation: Person, Place, Time, Situation Oral Motor Skills Dentition: Natural Current Food Consistancy: Regular, Thin Liquids Ability to Follow Directions: Excellent Oral Expression Ability: No Impairment Voice Voice Phonatory-Based Quality: Normal Voice Pitch: Normal Voice Loudness: Normal Face Facial Symmetry: Symmetrical Oral-Facial Assessment Oral-Facial Dentition: Normal Labial Seal Description: Normal Smile: Normal Puff Cheeks: Normal Lingual Protrusion: Normal Lingual ROM: Normal Lingual Strength: Normal Pharynx Velopharyngeal Move.: Normal Volitional Dry Swallow: Yes Dysphagia Evaluation Consistencies Presented: Thin Liquid, Mechanical Soft, Pureed - No oral impairments were noted throughout the evaluation. - No pharyngeal impairments were noted throughout the evaluation. - Thin liquids, puree, and mechanical soft solid: No signs/symptoms of aspiration were demonstrated with multiple boluses of any consistency provided. The patient's vocal quality remained clear throughout the assessment, however, the patient continued to report odynophagia upon each swallow. Dietary Recommendations: Mechanical Soft Liquid Recommendations: Thin Swallowing Precautions: Alternate Liquids/Solids, Small Bites and Sips, Sitting 90 Degrees 30 Post Intake - The patient should avoid dry, hard, sharp consistencies pending increased pharyngeal comfort. Dysphagia Evaluation Summary Mild Odynophagia Speech-Plan Treatment Plan Speech Therapy Treatment Plan: Discontinue ST Evaluation, only. Rehab Potential: Good Safety Risks/Education Teaching Recipient: Patient Teaching Methods: Discussion Response to Teaching: Verbalize Understanding Education Topics Provided: Results, Recommendations Time Speech Therapy Time In: 10:40 Speech Therapy Time Out: 10:55 Total Billed Time: 15 Billed Treatment Time 1, DYSEVS Speech GCodes Complexity Level Test(s)/Tool Used to Determine: Level of Assistance Scale Functional Limitation-Current Current: ADONIS Modifier: Functional Limitation-Goal Goal: SWALGOAL Modifier: Functional Limitation-D/C Discharge: [facility] Modifier: KALIN JOSEPH May 04, 2016 12:03
== END 2016-05-04 11:33 | disposition home or self-care (01) ==
LOC: ICU 11:45 → UNDOADMOB 11:50 → ICU 11:50 → 4TH 14:49 → ICU 14:49 → UNDODISOB 05-04 11:55
PROVIDERS: ADMIT Surgery Pediatric Surgery; ATTEND Surgery Pediatric Surgery
DX: R13.10 Dysphagia, unspecified (principal); K21.9 Gastro-esophageal reflux disease without esophagitis; R35.0 Frequency of micturition; F17.210 Nicotine dependence, cigarettes, uncomplicated
CPT/HCPCS: 36415; 74220; 80048; 81000; 85025; 99211; G0378

== ENCOUNTER 2016-06-30 21:33 | Emergency (ER) | payer SELFPAY ==
[~2016-06-30] VITALS: Ht 157.5 cm; Wt 54.4 kg
[~2016-06-30 21:33] MED LIST changes: +BUSP5TAB59 PO; +SUCR1ORA5 PO; +TRAM50TA2 PO
--- NOTE | 2016-07-01 00:06 | ED General ---
General Chief Complaint: General Problems/Pain Stated Complaint: HAS EPILEPSY - HAS BEEN FEELING OFF Nursing Triage Note: Patient c/o "feeling foggy, unable to focus, numb nose and lip". Has a history of "Absent seizures" Has been staring "off into space" Reports that she has been taking her medication as prescribed. Denies missing a dose. Nursing Sepsis Screen: No Definite Risk Source of Information: Patient Exam Limitations: No Limitations History of Present Illness Time Seen by Provider: 23:51 Initial Comments This 31-year-old young woman presents to emergency room with complaint of "I don 't feel right". She complains of numbness of her nose and top lip. She has difficulty concentrating. She had nausea earlier in the day. She has no specific lateralizing focal neurologic complaints. She takes numerous medications that could cause dysphoria or drowsiness including Topamax, gabapentin, Zoloft, Buspar, and trazodone. Allergies and Home Medications Allergies Coded Allergies: Penicillins (Verified Allergy, Intermediate, RASH, 07/10/10) adhesive tape (Unverified Allergy, Unknown, 02/03/16) iodine (Unverified Allergy, Unknown, 02/03/16) Home Medications Buspirone HCl 5 Mg Tablet, 5 MG PO TID, (Reported) Esomeprazole Magnesium 20 Mg Capsule.dr, 20 MG PO DAILY, (Reported) Gabapentin 300 Mg Capsule, 300 MG PO TID, (Reported) Hyoscyamine Sulfate 0.125 Mg Tablet, 0.125 MG PO TID PRN for SPASMS, (Reported) Sertraline HCl 50 Mg Tablet, 50 MG PO DAILY, (Reported) Sucralfate 1 Gm/10 Ml Oral.susp, 1 GM PO ACHS, #8 Prescribed by: DERIK SLAUGHTER on 05/04/16 [id number] Topiramate 50 Mg Tablet, 50 MG PO BID, (Reported) Tramadol HCl 50 Mg Tablet, 50 MG PO Q6H PRN for PAIN, (Reported) Trazodone HCl 100 Mg Tablet, 100 MG PO HS PRN for INSOMNIA, (Reported) Constitutional: see HPI EENTM: see HPI Respiratory: no symptoms reported Cardiovascular: no symptoms reported Gastrointestinal: see HPI Genitourinary: no symptoms reported Musculoskeletal: no symptoms reported Skin: no symptoms reported Psychiatric/Neurological: See HPI Hematologic/Lymphatic: No Symptoms Reported Immunological/Allergic: no symptoms reported Past Gsljnrr-Qtkahi-Ovawxz Hx Patient Social History Alcohol Use: Occasionally Uses Recreational Drug Use: No Type Used: Electronic/Vapor 2nd Hand Smoke Exposure: No Recent Foreign Travel: No Contact w/Someone Who Travel: No Recent Infectious Disease Expo: No Recent Hopitalizations: Yes Immunizations Up To Date Tetanus Booster (TDap): Unknown PED Vaccines UTD: No Seasonal Allergies Seasonal Allergies: Yes Surgeries HX Surgeries: Yes (MARY FUNDOPLICATION) Surgeries: Appendectomy, Section, Hysterectomy Respiratory Hx Respiratory Disorders: No Cardiovascular Hx Cardiac Disorders: No Neurological Hx Neurological Disorders: Yes Neurological Disorders: Headaches /Migraines, Neuropathy, Seizure Disorder Reproductive System : No Hx Reproductive Disorders: No Sexually Transmitted Disease: No HIV/AIDS: No 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 Genitourinary Hx Genitourinary Disorders: No Gastrointestinal Hx Gastrointestinal Disorders: Yes Gastrointestinal Disorders: Gastroesophageal Reflux, Hiatal Hernia Musculoskeletal Hx Musculoskeletal Disorders: No Endocrine Hx Endocrine Disorders: No HEENT HX ENT Disorders: No Cancer Hx Cancer: No Psychosocial Hx Psychiatric Problems: Yes Behavioral Health Disorders: Anxiety, Depression Integumentary HX Skin/Integumentary Disorder: Yes Skin/Integumentary Disorders: Eczema Blood Transfusions Hx Blood Disorders: No Adverse Reaction to a Blood Tr: No Family Medical History Significant Family History: No Pertinent Family Hx Physical Exam Vital Signs Vital Sign - Last 12Hours 06/30/16 22:18 Temp 98.6 Pulse 52 Resp 18 B/P (MAP) 97/63 Pulse Ox 98 O2 Delivery Room Air Capillary Refill : Less Than 3 Seconds General Appearance: No Apparent Distress, WD/WN HEENT: PERRL/EOMI, Normal ENT Inspection, Pharynx Normal Neck: Normal Inspection Respiratory: Lungs Clear, Normal Breath Sounds, No Accessory Muscle Use, No Respiratory Distress Cardiovascular: Regular Rate, Rhythm, No Edema, No Murmur Gastrointestinal: Normal Bowel Sounds, Non Tender, Soft Extremity: Normal Inspection, No Pedal Edema Neurologic/Psychiatric: Alert, Oriented x3, No Motor/Sensory Deficits, Normal Mood/Affect, change control coordinator II-XII Norm as Tested Skin: Normal Color, Warm/Dry Progress/Results/Core Measures Results/Orders Vital Signs/I&O Blood Pressure Mean: 74 Progress Note : Progress Note Options discussed with patient. She has appointment coming up with her primary care provider. I offered to perform screening lab work. Patient declines as vital signs are stable and exam is unremarkable. She will just follow up with her primary care provider. I suspect she is having a medication effect and she is on numerous medications that could cause adverse effects to explain her symptoms. Departure Impression Impression: Primary Impression: Dysphoric mood Additional Impressions: Nausea Facial paresthesia Disposition: 01 HOME, SELF-CARE Condition: Stable Departure-Patient Inst. Decision time for Depature: 00:05 Referrals: [facility] (PCP/Family) Primary Care Physician Patient Instructions: NO INSTRUCTIONS GIVEN Add. Discharge Instructions: Return to care if symptoms worsen. Drink plenty of clear liquids. Follow-up with your primary care provider soon as possible. It is important that you review your medications with your prescriber as you are on multiple medications that have possible side effects. All discharge instructions reviewed with patient and/or family. Voiced understanding. QASIM SCHRADER MD July 01, 2016 00:06
[2016-07-01 00:10] VITALS: BP 97/63
== END 2016-07-01 00:12 | disposition home or self-care (01) ==
LOC: EDUNIT# 21:33 → ER 21:36
DX: F34.1 Dysthymic disorder (principal); R11.0 Nausea; R20.2 Paresthesia of skin; G40.909 Epilepsy, unspecified, not intractable, without status epilepticus; Z79.899 Other long term (current) drug therapy
CPT/HCPCS: 99281